=== PATIENT | male | born 1990 | race Caucasian/White ===

== ENCOUNTER 2023-10-11 09:57 | Outpatient (AMB) | payer SELFPAY ==
--- NOTE | 2023-10-11 10:02 | AM.OFFWIN_ITS ---
Intake Vital Signs 3 10/11/23 10:03 Height 5 ft 10 in Weight 222 lb BMI 31.9 BP 110/72 Blood Pressure Location Lt brachial Position Sitting Pulse 66 Pulse Source Pulse Oximeter Temp 97.5 F Temp Source Temporal Artery Scan Pulse Oximetry (%) 97 Oxygen Delivery Method Room Air Intake Visit Reasons: EP Mid back pain 1week (obey) Intake Note: pt is here today for mid back pain started 1 week ago Patient Tobacco Use Status: Current everyday Tobacco user Allergies No Known Allergies [No Known Allergies*] Allergy (Verified 10/11/23 10:05) Medication List - Last Reconciled 10/11/23 by Karyn Walker MD No Known Home Meds Do you need a note to return to daycare/school/sports/work: Yes HPI EP Mid back pain 1week (obey) 2 HPI0 Details Patient is a 32 year gentleman came in today to be evaluated for mid back pain for the past 10 days but worse for the past 2 days Patient says that it started when he was picking up something heavy, initially it just felt sore but then 2 days ago it start hurting to a point where he was having difficulty sleeping at night There is no radiation of pain It is located upper thoracic area both sides On examination patient is complaining of pain with left lateral rotation and with full flexion I am treating him with cyclobenzaprine up to 2 times a day 10 mg p.r.n. And diclofenac 75 b.i.d. p.r.n. with food for 7 days Patient should also make appointment with primary care for follow-up [facility] Social History Patient Tobacco Use Status: Current everyday Tobacco user Review of Systems Const All systems reviewed & are unremarkable except as noted in HPI and below Physical Exam Vital Signs: Last Vital Signs Temp 97.5 F 10/11/23 10:03 Pulse 66 10/11/23 10:03 BP 110/72 10/11/23 10:03 Pulse Ox 97 10/11/23 10:03 Oxygen Delivery Method Room Air 10/11/23 10:03 BMI result Body Mass Index 31.9 Const General: no acute distress Orientation/consciousness: patient oriented x3 Eyes General: appearance normal, both eyes and all related structures Resp Effort & Inspection: normal respiratory effort and able to speak in complete sentences Auscultation: clear to auscultation bilaterally Cardio Other: S1 S2 Back/Spine/Pelvis Back/spine/pelvis image: 2 1. Site of pain, no pain with percussion Neuro General: patient oriented x3 Psych Mental Status: mental status grossly normal Assessment & Plan Assessment & Plan (1) Mid back pain on left side: Code(s): M54.9 - Dorsalgia, unspecified Plan Patient is a 32 year gentleman came in today to be evaluated for mid back pain for the past 10 days but worse for the past 2 days Patient says that it started when he was picking up something heavy, initially it just felt sore but then 2 days ago it start hurting to a point where he was having difficulty sleeping at night There is no radiation of pain It is located upper thoracic area both sides On examination patient is complaining of pain with left lateral rotation and with full flexion I am treating him with cyclobenzaprine up to 2 times a day 10 mg p.r.n. And diclofenac 75 b.i.d. p.r.n. with food for 7 days And avoid lifting weight especially in flexion position Patient should also make appointment with primary care for follow-up Medications: New 2 diclofenac sodium 75 mg PO BID 10 days 20 tabs 0RF pain Changed 2 From cyclobenzaprine 10 mg PO TID PRN 10 tabs 0RF muscle spasm To cyclobenzaprine 10 mg PO BID 7 days PRN 14 tabs 0RF muscle spasm Coding Level of Care Code Est Pt Level 3 (86834) Diagnoses Mid back pain on left side M54.9
[2023-10-11 10:03] VITALS: BP 110/72; PULSE 66; TEMP 36.4; O2SAT 97; BMI 31.9
== END 2023-10-11 11:51 | disposition home or self-care (01) ==
PROVIDERS: PCP Nurse Practitioner Family; Visit Provider Internal Medicine
DX: M54.9 Dorsalgia, unspecified (principal)
CPT/HCPCS: 99213

== ENCOUNTER 2023-10-18 08:59 | Outpatient (AMB) | payer SELFPAY ==
[2023-10-18 09:02] VITALS: BP 112/70; PULSE 81; O2SAT 96; BMI 31.2
--- NOTE | 2023-10-18 09:02 | MHC.PC.OV ---
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 [place] Allergies No Known Allergies [No Known Allergies*] Allergy (Verified 10/18/23 09:03) Medication List - Last Reconciled 10/18/23 by Karyn Walker MD cyclobenzaprine 10 mg PO BID PRN 10 days diclofenac sodium 75 mg PO BID 10 days Tobacco use date assessed: 10/18/23 Dental Screening Dental Screen Date: 10/18/23 Did you have a dental visit in the last 12 months?: No Did you have a dental problem in the last 6 months where you did not have access to dental care?: No Was dental information given to patient?: Patient has dentist HPI 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 [place] HPI Details Patient is a 32-year-old gentleman came in today for establish care visit Patient says that he woke up yesterday morning with neck pain 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 And diclofenac 75 mg with food b.i.d. Patient is to let me know in 10 days how is he feeling and then we will set up a physical exam appointment [facility] Social History Housing: House Patient Tobacco Use Status: Current everyday Tobacco user e-Cigarette/Vaping Use: Never Used Current occupational status: employed Cognitive needs: No Hearing needs: No Vision needs: No Questionnaire Thrive Questionnaire Date Thrive assessed: 10/18/23 I am a: Patient What is your living situation today?: I have a steady place to live Within the past 12 months, did the food you bought not last and you didn't have the money to get more?: Never true Within the past 12 months, did you worry whether your food would run out before you got money to buy more?: Never true Do you have trouble paying for medicines?: No Do you have trouble getting transportation to medical appointments?: No Do you have trouble paying your heating and electricity bill?: No Do you have trouble taking care of your child, family member or friend?: No Do you have trouble with day-to-day activities such as bathing, preparing meals, shopping, managing finances, etc.?: No Are you currently unemployed and looking for a job?: No Are you interested in more education?: No Please select the resources that you would like help with: None Currently or been in a relationship where the following occur: no concerns reported THRIVE Score: 0 AUDIT C Alcohol Use Questionnaire (AUDIT-C) 1. How often do you have a drink containing alcohol?: Monthly or less 2. How many drinks containing alcohol do you have on a typical day when you are drinking?: 1 or 2 3. How often do you have six or more drinks on one occasion?: Never Total Score: 1 Score Reviewed/Action Taken: Yes ANNABELLE-7 AMB Questionnaire ANNABELLE-7 Date ANNABELLE - 7 assessed: 10/18/23 Feeling nervous, anxious, or on edge: 0 = Not at all Not being able to stop or control worryin = Not at all Worrying too much about different things: 0 = Not at all Trouble relaxin = Not at all Being so restless that it is hard to sit still: 0 = Not at all Becoming easily annoyed or irritable: 0 = Not at all Feeling afraid as if something awful might happen: 0 = Not at all Total ANNABELLE-7 score (0-4 normal; 5-9 mild; 10-14 moderate; 15-21 severe): 0 Source: Developed by Drs. Clayton Youngblood, Kami Lugo, Kuldeep Will and colleagues, with an educational benjamin from [employer]. ANNABELLE-7 Assessment Billing ANNABELLE-7 Assessment Tool: ANNABELLE-7 Assessment 42631 Review of Systems Const Denies chills and Denies fever(s) ENT Denies epistaxis and Denies nasal discharge Card Denies chest pain Resp Denies chest congestion, Denies cough and Denies hemoptysis GI Denies diarrhea and Denies nausea Skin/Breast Denies rash Neuro Reports no additional complaints Psych Reports no additional complaints Endo Reports no additional complaints Physical exam (Primary Care) Vital Signs: Last Vital Signs Pulse 81 10/18/23 09:02 BP 112/70 10/18/23 09:02 Pulse Ox 96 10/18/23 09:02 Oxygen Delivery Method Room Air 10/18/23 09:02 BMI result Body Mass Index 31.2 Tobacco/Smoking Status: Tobacco use Status Tobacco use date assessed 10/18/23 10/18/23 09:06 Patient Tobacco Use Status Current everyday Tobacco 10/18/23 09:06 e-Cigarette/Vaping Use Never Used 10/18/23 09:06 Thrive Assessment: Date of Thrive Assessment Date Thrive assessed 10/18/23 10/18/23 09:28 Currently or been in a relationship where the following occur: no concerns reported Const General: cooperative, comfortable and no acute distress Orientation/consciousness: patient oriented x3 HENMT Head: Yes normocephalic Eyes General: appearance normal, both eyes and all related structures Neck Other: Discomfort with flexion of neck in the back Resp Effort & Inspection: normal respiratory effort, no cough and no stridor Cardio Rhythm: regular rhythm Heart sounds: S1 normal heart sound present and S2 normal heart sound present Back/Spine/Pelvis Back/spine/pelvis image: 1. Site of pain, no pain with cervical spine percussion Skin General skin exam: turgor normal Neuro Other: Motor sensory intact upper extremity bilateral DTR 2+ General: patient oriented x3, tone normal and moves all extremities Extrem Other: Both shoulders with full range of motion without any pain Right lower extremity: no edema Left lower extremity: no edema Assessment and Plan Assessment & Plan (1) Encounter to establish care: Code(s): Z76.89 - Persons encountering health services in other specified circumstances (2) Strain of cervical portion of both trapezius muscles: Code(s): S16.1XXA - Strain of muscle, fascia and tendon at neck level, initial encounter (3) Cervicalgia: Code(s): M54.2 - Cervicalgia Plan Patient is a 32-year-old gentleman came in today for establish care visit Patient says that he woke up yesterday morning with neck pain 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 And diclofenac 75 mg with food b.i.d. Patient is to let me know in 10 days how is he feeling and then we will set up a physical exam appointment Medications: Changed From cyclobenzaprine 10 mg PO BID 7 days PRN 14 tabs 0RF muscle spasm To cyclobenzaprine 10 mg PO BID PRN 20 tabs 0RF muscle spasm 10 days Refilled diclofenac sodium 75 mg PO BID 20 tabs 0RF pain 10 days Coding Level of Care Code New Pt Level 3 (73521) Diagnoses Encounter to establish care Z76.89 Strain of cervical portion of both trapezius muscles S16.1XXA Cervicalgia M54.2 Additional Codes ANNABELLE-7 Assessment Billing - ANNABELLE-7 Assessment Tool: ANNABELLE-7 Assessment 52047 ([id number])
== END 2023-10-18 10:34 | disposition home or self-care (01) ==
PROVIDERS: PCP Internal Medicine; Visit Provider Internal Medicine
DX: S16.1XXA Strain of muscle, fascia and tendon at neck level, initial encounter (principal); M54.2 Cervicalgia; Z76.89 Persons encountering health services in other specified circumstances
CPT/HCPCS: 99213

== ENCOUNTER 2024-03-31 09:06 | Emergency (ER) | payer OTHER, SELFPAY ==
--- NOTE | ~2024-03-31 | CT_ITS ---
EXAMINATION: CT angio head neck CLINICAL INFORMATION: Neck pain. Evaluate for dissection. COMPARISON: Cervical spine radiographs 08/24/2018. TECHNIQUE: Sizing End Bander images were obtained. A CT angiogram of the head and neck was performed in the arterial phase after the intravenous administration of 85 mL Omnipaque 350. Pre and delayed postcontrast images of the head were also obtained. 3D images were processed on an independent workstation under concurrent supervision. Arterial stenoses are measured in accordance with NASCET criteria or similar method if applicable. This CT examination was performed using dose optimization techniques as appropriate, including one or more of the following: Automated exposure control, iterative reconstruction, and adjustment of technique factors (mA and/or kVp) according to patient size (this includes techniques or standardized protocols for targeted exams where dose is matched to indication/reason for exam). Fleischner Society criteria for the followup of incidental pulmonary nodules was implemented if appropriate. Total exam dose-length product 2595 mGy-cm FINDINGS: Head: There is no acute intracranial hemorrhage or abnormal extra-axial collection. Postcontrast images reveal no abnormal intracranial mass or enhancement. There is no intracranial mass effect or midline shift. Lateral and third ventricles are normal. No hydrocephalus. Mathew-white matter differentiation is preserved and there is no evidence of acute territorial infarct. The calvarium and skull base are intact. Mastoid air cells and middle ear cavities are well aerated. No active paranasal sinus disease. CT angiogram neck: The aortic arch apex is normal. Origins of the major aortic branches are widely patent. Common carotid arteries and carotid bifurcations are normal. No stenosis of the extracranial internal carotid arteries. The cervical segments of the vertebral arteries are widely patent. No evidence of acute arterial dissection within the neck. CT angiogram head: Intracranial internal carotid arteries are normal. The intervertebral prevertebral artery segment and basilar artery are normal. Anterior, middle, and posterior cerebral complexes are normal. No intracranial large vessel occlusion. No identifiable aneurysm or high flow vascular lesion. Other: Soft tissues of the neck including the thyroid gland are normal. No pathologically enlarged cervical lymph nodes. No miso or axillary adenopathy is visualized within the [id number] of this examination. Lung apices are clear. No acute osseous finding. Specifically no worrisome lytic or blastic osseous lesion. CT/CT angio head neck IMPRESSION: Normal CT angiogram of the head and neck. No evidence of acute arterial dissection. No stenosis of the cervical carotid or vertebral arteries. No intracranial large vessel occlusion. No evidence of acute territorial infarct or hemorrhage. No abnormal intracranial mass or enhancement. Electronically signed by: Clayton Sharma MD 03/31/2024 11:39 AM EDT
--- NOTE | 2024-03-31 09:25 | ED.GENADULT ---
HPI - General Adult General Chief complaint: General Medical Stated complaint: Neck pain Time Seen by Provider: 03/31/24 09:19 Source: patient Mode of arrival: ambulatory Limitations: no limitations History of Present Illness ED Provider: Bret JARQUIN HPI narrative: 33-year-old male history of intermittent smoker , cervicalgia, strain of cervical portion of the trapezius muscles, mid back on left side pain, tendinitis presenting from urgent care with left-sided neck pain x3 days. Patient reports a sore pain to the left side of his neck, he is able to pinpoint the exact location of pain he reports it is atraumatic in nature however he thinks it may have started after he lifted some heavy wires. He went to urgent care this morning where they had him come in for rule out carotid dissection. He reports he has a mild diffuse headache however no visual disturbances, dizziness or weakness, trauma, chest pain, shortness of breath, palpitations Related Data Previous Rx's ?Medication ?Instructions ?Recorded cyclobenzaprine 10 mg tablet 10 mg PO BID PRN muscle spasm 10 10/18/23 days #20 tabs diclofenac sodium 75 mg 75 mg PO BID pain 10 days #20 tabs 10/18/23 tablet,delayed release ketorolac 10 mg tablet 10 mg PO TID PRN pain 5 days #15 03/31/24 tabs lidocaine 5 % topical patch 1 patch topical DAILY PRN pain #15 03/31/24 ea Allergies Allergy/AdvReac Type Severity Reaction Status Date / Time No Known Allergies Allergy Verified 03/31/24 09:34 [No Known Allergies*] Review of Systems Review of Systems: Yes all other systems are reviewed and are negative PMFSH Past Medical History Attestation statement: The following information was validated with the patient. Source: old records reviewed and nursing notes reviewed Social History Social History Housing: House Alcohol intake: current Patient Tobacco Use Status: Current everyday Tobacco user Smoked in Last 30 Days: Yes e-Cigarette/Vaping Use: Never Used Substance Use Type: Marijuana Advance Directives: No Advance Directives Information Provided: No Do you have a plan to hurt others: No Plan Current occupational status: employed Cognitive needs: No Hearing needs: No Vision needs: No Physical Exam ED Vital Signs: Vital Signs - 24 hr 03/31/24 09:31 03/31/24 10:10 Temperature 98.1 F Pulse Rate 55 53 Respiratory Rate 15 17 Blood Pressure 123/75 Pulse Oximetry 100 99 Oxygen Delivery Method Room Air BMI result Body Mass Index 30.1 vss Appearance: Alert.? Oriented X3.? No acute distress.? Head: Normocephalic, atraumatic, no step-offs or deformities Eyes: Pupils equal, round and reactive to light.? Neck: TTP overlying L SCM . No bruits b/l. CVS: Normal heart rate and rhythm.? Pulses normal.? Respiratory: No respiratory distress.? Breath sounds normal.? Abdomen: Soft and nontender.? Skin: Skin warm and dry.? Normal skin color.? Normal skin turgor.? Extremities: No lower extremity edema.? No calf ttp. 5/5 strength to bilateral upper and lower extremities Neuro: Oriented X 3.? No motor deficit.? No sensory deficit. CN 2-12 intact Course Reevaluation(s) Reevaluation #1: CBC with a normocytic. Chemistry no acute findings needing intervention. CTA angio head and neck normal CT angio of head and neck. No evidence of acute arterial dissection. No stenosis of the cervical carotid or vertebral arteries. No intracranial large vessel occlusion. No evidence of acute territorial infarct or hemorrhage. No abnormal intracranial mass or enhancement. This is likely musculoskeletal. Will give Toradol for pain and Lidoderm patch. Educated patient on diagnosis and treatment plan, answered all question, patient verbalizes understanding. At this time patient will be discharged home, advised to return with new or worsening symptoms. Educated on worrisome signs and symptoms and when to return. At this time I feel comfortable discharge home. Time: 11:48 Medications Administered Discontinued Medications Generic Name Dose Route Start Last Admin Trade Name Freq PRN Reason Stop Dose Admin Iohexol 100 ml 03/31/24 11:03 03/31/24 11:03 Iohexol 350 Mg/Ml 100 Ml Infus..Btl IV 03/31/24 11:04 70 ml ONCE ONE Administration Medical Decision Making Medical Decision Making [facility] Narrative: This is a 33-year-old male presenting with left-sided neck pain ongoing for the past 3 days. Atraumatic in nature. Was sent in from urgent care to rule out dissection. Physical exam with point tenderness overlying the left sternocleidomastoid muscle. No bruits bilaterally. History and physical exam concerning for sternocleidomastoid muscle strain. Unlikely dissection, aneurysm rupture. No signs of stroke posterior stroke or intracranial hemorrhage. Plan will do a CTA as he was brought in for rule out dissection although I do not suspect this. This is likely muscular in nature. Differential Diagnosis Differential Diagnoses: The differential diagnosis associated with the presentation includes History and physical exam concerning for sternocleidomastoid muscle strain. Unlikely dissection, aneurysm rupture. No signs of stroke posterior stroke or intracranial hemorrhage. Admission/Observation Consideration of admission/observation: Escalation of care including admission/observation considered Unlikely Lab Data MDM Lab Attestation statement: I reviewed the patient's lab results. 03/31/24 09:49 03/31/24 09:49 Labs: Lab Results 03/31/24 Range/Units 09:49 WBC 5.5 (4.8-10.8) X10*3/uL RBC 4.24 L (4.60-5.80) X10*6/uL Hgb 13.3 L (14.0-18.0) g/dl Hct 39.5 L (42.0-52.0) % MCV 93.2 (80.0-98.0) fL MCH 31.4 (27.0-33.0) pg MCHC 33.7 (31.0-36.0) g/dl RDW 12.2 (11.0-16.0) % Plt Count 175 (160-400) X10*3/uL MPV 9.4 (9.4-12.4) fL Immature Gran % (Auto) 0.2 (0.0-0.4) % Neut % (Auto) 52.6 (45-73) % Lymph % (Auto) 34.4 (20-40) % Larimer % (Auto) 9.7 (2-11) % Eos % (Auto) 2.2 (0-4) % Baso % (Auto) 0.9 (0-2) % Lymph # (Auto) 1.9 (1.2-4.9) X10*3/uL [place]imer # (Auto) 0.5 (0.1-1.2) X10*3/uL Eos # (Auto) 0.1 (0.0-0.4) X10*3/uL Baso # (Auto) 0.1 (0.0-0.2) X10*3/uL Abs Immat Gran (auto) 0.01 (0.00-0.03) X10*3/uL Absolute Neuts (auto) 2.9 (2.0-8.3) x10*3/uL Absolute Nucleated RBC 0.000 (0.0-0.012) X10*3/uL Nucleated RBC % (auto) 0.0 (0.0-0.2) /100WBC Sodium 141 (135-145) mmol/L Potassium 4.7 (3.3-5.1) mmol/L Chloride 108 (96-108) mmol/L Carbon Dioxide 27 (22-29) mmol/L Anion Gap 11 L (12-20) BUN 18 H (9-16) mg/dL Creatinine 0.84 (0.5-1.4) mg/dL Estim Creat Clear Calc 144.9 Estimated GFR > 60 Random Glucose 108 (60-115) mg/dL Calcium 9.6 (8.4-10.2) mg/dL Magnesium 1.9 (1.6-2.6) mg/dL Total Bilirubin 0.3 (0.0-1.0) mg/dL AST 20 (5-37) U/L ALT 25 (0-40) U/L Alkaline Phosphatase 51 (39-117) U/L Total Protein 6.8 (6.5-8.0) g/dL Albumin 4.3 (3.5-5.0) g/dL Independent Interpretation I performed an independent interpretation of an: CT Scan Radiology Impression Discussion of test interpretation with radiology: I have reviewed the radiologist's reading. Chronic Conditions Patient?s care impacted by: Other (intermittent smoke ) Critical Care Time Critical Care Time Critical Care Time: No Discharge Plan Discharge Clinical Impression: Strain of sternocleidomastoid muscle Patient Disposition: Home, Self-Care Instructions: Cervical Strain (ED), Muscle Strain (ED) Additional Instructions: Take your medications as prescribed. If you were prescribed antibiotics today, it is important that you take your medication to their entirety, do not skip any doses, do not finish them early. Follow-up with your primary care provider this week. Return to the emergency department with new or worsening symptoms. Such as fevers, chills, chest pain, shortness of breath, nausea, vomiting, dizziness, headache, vision changes, lethargy In case of emergency call 911 Toradol has been sent to your pharmacy, you tolerated this well in the department. Please take this as prescribed do not take this with ibuprofen, or other NSAIDs, do not mix this with alcohol. Side effects of this medication including increased risk for bleeding and possible kidney injury. CT/CT angio head neck IMPRESSION: Normal CT angiogram of the head and neck. No evidence of acute arterial dissection. No stenosis of the cervical carotid or vertebral arteries. No intracranial large vessel occlusion. No evidence of acute territorial infarct or hemorrhage. No abnormal intracranial mass or enhancement. Prescriptions: New ketorolac 10 mg tablet 10 mg PO TID PRN (Reason: pain) 5 Days Qty: 15 0RF Rx Instructions: Tolerated IM or IV in department lidocaine 5 % adhesive patch,medicated 1 patch topical DAILY PRN (Reason: pain) Qty: 15 0RF Rx Instructions: leave on most painful area for up to 12 hrs No Action diclofenac sodium 75 mg tablet,delayed release (DR/EC) 75 mg PO BID 10 Days Qty: 20 0RF cyclobenzaprine 10 mg tablet 10 mg PO BID PRN (Reason: muscle spasm) 10 Days Qty: 20 0RF Referrals: Physician,None [Primary Care Provider] - 2 days Print Language: Comoran
[2024-03-31 09:31] VITALS: BP 123/75; PULSE 55; RESP 15; TEMP 36.7; O2SAT 100; BMI 30.1
[2024-03-31 09:54] LABS: MANUAL DIFF FLAG NO
[2024-03-31 09:56] LABS: Basophils Absolute Auto 0.1 X10*3/uL (0.0-0.2); Basophils Percent Auto 0.9 % (0-2); Eosinophils Absolute Auto 0.1 X10*3/uL (0.0-0.4); Eosinophils Percent Auto 2.2 % (0-4); Hematocrit 39.5 % (42.0-52.0); Hemoglobin 13.3 g/dl (14.0-18.0); Imm Gran Abs Auto 0.01 X10*3/uL (0.00-0.03); Imm Gran Pct Auto 0.2 % (0.0-0.4); Lymphocytes Absolute Auto 1.9 X10*3/uL (1.2-4.9); Lymphocytes Percent Auto 34.4 % (20-40); Mean Corpuscular HGB Conc 33.7 g/dl (31.0-36.0); Mean Corpuscular Hemoglobin 31.4 pg (27.0-33.0); Mean Corpuscular Volume 93.2 fL (80.0-98.0); Mean Platelet Volume 9.4 fL (9.4-12.4); Monocytes Absolute Auto 0.5 X10*3/uL (0.1-1.2); Monocytes Percent Auto 9.7 % (2-11); Neutrophils Absolute Auto 2.9 x10*3/uL (2.0-8.3); Neutrophils Percent Auto 52.6 % (45-73); Platelet Count 175 X10*3/uL (160-400); Red Blood Count 4.24 X10*6/uL (4.60-5.80); Red Cell Distribution Width 12.2 % (11.0-16.0); White Blood Count 5.5 X10*3/uL (4.8-10.8)
[2024-03-31 10:09] LABS: Alanine Aminotransferase 25 U/L (0-40); Albumin Level 4.3 g/dL (3.5-5.0); Alkaline Phosphatase 51 U/L (39-117); Anion Gap 11 (12-20); Aspartate Amino Transferase 20 U/L (5-37); Bilirubin Total 0.3 mg/dL (0.0-1.0); Blood Urea Nitrogen 18 mg/dL (9-16); Calcium 9.6 mg/dL (8.4-10.2); Carbon Dioxide 27 mmol/L (22-29); Chloride 108 mmol/L (96-108); Creatinine Clr Calc Pharmacy 144.9; Estimated Glomerular Filt Rate > 60; Glucose Random 108 mg/dL (60-115); Magnesium 1.9 mg/dL (1.6-2.6); Potassium 4.7 mmol/L (3.3-5.1); Sodium 141 mmol/L (135-145); Total Protein 6.8 g/dL (6.5-8.0)
[2024-03-31 10:10] VITALS: PULSE 53; RESP 17; O2SAT 99
[2024-03-31] MEDS: iohexoL 350 MG/ML 100 ML INFUS..BTL IV (11:03)
[2024-03-31] MEDS: Ketorolac Tromethamine 15 MG/ML VIAL 30 MG IVPUSH (11:55)
[2024-03-31 12:07] VITALS: BP 145/76; PULSE 76; RESP 17; O2SAT 98
[2024-03-31 12:08] VITALS: BP 145/76; PULSE 76; RESP 17; TEMP 36.6; O2SAT 98
== END 2024-03-31 12:09 | disposition home or self-care (01) ==
PROVIDERS: Physician Assistant; Emergency Provider Emergency Medicine
DX: M54.2 Cervicalgia (principal); M54.50 Low back pain, unspecified; F17.210 Nicotine dependence, cigarettes, uncomplicated; Z79.899 Other long term (current) drug therapy
CPT/HCPCS: 36415; 70496; 70498; 80053; 83735; 85025; 96374; 99284; J1885; Q9967